=== PATIENT | male | born 2005 | race Caucasian/White ===

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

== ENCOUNTER 2025-07-03 17:43 | Outpatient (REF) | payer MEDICAID, SELFPAY ==
--- OUTSIDE RECORDS SUMMARY | 2025-07-03 09:00 | XMS_ITS | Encounter Summary ---
Author Organization [employer] Address [address] [place] [address] Care Team Providers Care Otr Owner Operator Name Role Phone Lorena Bhatia NP Primary Care Provider [phone] Reason for Referral * Consultation (Routine) - Authorized Specialty Diagnoses / Procedures Referred By German newell Referred To Contact Behavioral Health Diagnoses Posttraumatic stress disorder Lorena Bhatia NP [address] [place] [address] Phone: tel: fax: Referral ID Status Reason Start Date Expiration Date Visits Requested Visits Authorized [id number] Authorized Specialty Services Required 07/03/2026 1 1 * Consultation (Routine) - Authorized Specialty Diagnoses / Procedures Referred By German newell Referred To Contact Dental E Commerce Developer / Dentistry Diagnoses Routine general medical examination at a health care facility Lorena Bhatia NP [address] [place] [address] Phone: tel: fax: Referral ID Status Reason Start Date Expiration Date Visits Requested Visits Authorized [id number] Authorized Consult and Treat 07/03/2025 07/03/2026 1 1 Reason for Visit * Reason Comments Annual Exam Encounter Details Date Type Department Care Team (Late st Contact Info) Description 07/03/2025 9:00 AM EDT Office Visit [facility] [address] [place] [address] Lorena Bhatia NP [address] [place] [address] Routine general medical examination at a health care facility (Primary Dx); Anxiety; Posttraumatic stress disorder; Dietary counseling; Exercise counseling; Functional heart murmur Social History Tobacco Use Types Packs/Day Years Used Date Smoking Tobacco: Never Smokeless Tobacco: Never Alcohol Use Standard Drinks/Week Comments Never 0 (1 standard drink = 0.6 oz pur e alcohol) Depression Answer Date Recorded Patient Health Questionnaire-9 Score 12 05/23/2025 Patient Health Questionnaire-9 Score 12 05/23/2025 Last PHQ-9: Questionnaire Data Not on file 0 05/23/2025 Housing Stability Answer Date Recorded What is your housing situation today? I have dl nair 05/23/[address] you li ve. Do you have problems with any of the following? None of the above 05/23/2025 Food Insecurity Answer Date Recorded Within the past 12 months, y ou worried that your food would run out before you got money to buy more: Sometimes True 2024 Within the past 12 months,th e food you bought just didn't last and you didn't have enough money to get more: Sometimes True 05/23/2025 Transportation Answer Date Recorded In the past 12 months, has l ack of transportation kept you from medical appts, meetings, work or from getting things needed for daily living? No 05/23/2025 Utilities Answer Date Recorded In the past 12 months, has t he electric, gas, oil or water company threatened to shut off services in your home? No 05/23/2025 Depression Answer Date Recorded Patient Health Questionnaire-2 Score 4 05/23/2025 Internet Access Answer Date Recorded Internet Access Q1 Yes 05/23/2025 Internet Access Q2 Not on file 05/23/2025 Sex and Gender Information Value Date Recorded Sex Assigned at Male 07/21/2022 10:18 AM EDT Legal Sex Male 10:18 AM EDT Gender Identity Male 07/21/2022 10:18 AM EDT Sexual Orientation Straight 05/11/2024 11 :04 AM EDT documented as of this encounter Last Filed Vital Signs Vital Sign Reading Time Taken Comments Blood Pressure 112/80 07/03/2025 9:09 AM EDT Pulse 78 07/03/2025 9:09 AM EDT Temperature 36.7 C (98.1 F) 07/03/2025 9:09 AM EDT Respiratory Rate 17 07/03/2025 9:09 AM EDT Oxygen Saturation 99% 07/03/2025 9:09 AM EDT Inhaled Oxygen Concentration - - Weight 82 kg (180 lb 12.8 oz) 07/03/2025 9:09 AM EDT Height 172.7 cm (5' 8 ) 07/03/2025 9:09 AM EDT Body Mass Index 27.49 07/03/2025 9:09 AM EDT documented in this encounter Miscellaneous Notes * Assessment & Plan Note - Lorena Bhatia NP - 07/03/2025 9:00 AM EDTAssociated Problem(s): Routine general medical examination at a health care facility Dental care- encouraged to visit the dental department and establish care Routine eye examinations for a health adult- an internal referral will be sent; Encouraged to ensure eye examinations every 2-3 years Orders: Chlamydia/N. Gonorrhoeae, PCR, Urine Referral to [facility] Dental Adult; Future * Assessment & Plan Note - Lorena Bhatia NP - 07/03/2025 9:00 AM EDTAssociated Problem(s): Dietary counseling Dietary Recommendations: Fruits, vegetables, whole grains, protein foods, and fat-free or low-fat dairy products are healthychoices. Eat different types of protein foods in your diet. This can include seafood, lean meats, poultry, beans, peas, lentils, nuts, seeds, soy products, and eggs. Limit foods and beverages higher in added sugars, saturated fat, and sodium. Exercise Recommendations: At least 150 minutes of moderate-intensity physical activity per week, or an equivalent combinationof moderate- and vigorous-intensity activity * Assessment & Plan Note - Lorena Bhatia NP - 07/03/2025 9:00 AM EDTAssociated Problem(s): Anxiety Continue with lifestyle measures and encouraged to report anxiety that is unmanageable. He is welcomed to seek help through the behavioral team here as he can be connected with community services * Assessment & Plan Note - Lorena Bhatia NP - 07/03/2025 9:00 AM EDTAssociated Problem(s): Posttraumatic stress disorder Reports the condition is well controled and has a strong support system at home. Informed of the services offered here and he is welcomed to return with exacerbations to his condition. Orders: Referral to Behavioral Health; Future * Assessment & Plan Note - Lorena Bhatia NP - 07/03/2025 9:00 AM EDTAssociated Problem(s): Exercise counseling Encouraged to continue with exercise- walking and going to the gym At least 150 minutes of moderate-intensity physical activity per week, or an equivalent combinationof moderate- and vigorous-intensity activity * Assessment & Plan Note - Zoey Romero NP - 07/03/2025 9:00 AM EDT Associated Problem(s): Functional heart murmur Informed this is benign etiology, usually present in infancy and childhood. There were no concerning objective or subjective data collected. Encouraged to report palpitations, shortness of breath, dizziness, irregular heart rate, or inability to perform activities documented in this encounter Plan of Treatment Upcoming Encounters Date Type Department Care Team (Late st Contact Info) Description 09/04/2025 3:15 PM EST Office Visit [facility] [address], [place] [id number] Lorena Bhatia NP [address] [place] [address] Scheduled Orders Name Type Priority Associated Diagnoses Orde r Schedule Chlamydia/N. Gonorrhoeae, PCR, Urine Lab Routine Routine general medical examination at a health care facility Ordered: 07/03/2025 Scheduled Referrals Name Type Priority Associated Diagnoses Orde r Schedule Referral to [facility] Dental Adult Outpatient Referral Routine Routine general medical examination at a health care facility Expected: 07/03/2025 (Approximate), Expires: 07/03/2026 Referral to Behavioral Health Outpatient Referral Routine Posttraumatic stress disorder Expected: 07/03/2025 (Approximate), Expires: 12/31/2026 documented as of this encounter Visit Diagnoses Diagnosis Routine general medical examination at a health care facility- Primary Anxiety Anxiety state, unspecified Posttraumatic stress disorder Dietary counseling Dietary surveillance and counseling Exercise counseling Functional heart murmur Undiagnosed cardiac murmurs documented in this encounter Additional Health Concerns Assessment Noted Time PHQ-9 Depression Total Score: 12 025 2:42 PM EDT documented as of this encounter Care Teams Otr Owner Operator Relationship Specialty Start Date End Date Lorena Bhatia NP [address] [place] [address] PCP - General Family Medicine 05/11/24 Jacy Guardado Web PublisherZinc Etcher 04/27/24 documented as of this encounter
--- OUTSIDE RECORDS SUMMARY | 2025-07-03 17:46 | XMS_ITS | Encounter Summary ---
Author Organization [employer] Address [address] [place] [address] Care Team Providers Care Internal Salesperson Name Role Phone Lorena Bhatia NP Primary Care Provider [phone] Encounter Details Date Type Department Care Team (Latest Contact Info) Description 06/30/2025 Travel Social History Tobacco Use Types Packs/Day Years [...] is your housing situation today? I have dlmikayla nair 05/23/[address] you [...] AM EDT documented as of this encounter Plan of Treatment Upcoming Encounters Date Type Department Care Team (Late st Contact Info) Description 09/04/2025 3:15 PM EST Office Visit [facility] [address] [place] [phone] Lorena Bhatia NP [address] [place] [address] documented as of this encounter Visit Diagnoses Not on filedocumented in this encounter Additional Health Concerns Assessment Noted Time PHQ-9 Depression Total Score: 12 025 2:42 PM EDT documented as of this encounter Care Teams Internal Salesperson Relationship Specialty Start Date End Date Lorena Bhatia NP [address] [place] [id number] PCP - General Family Medicine 05/11/24 Jacy Guardado Security SupervisorIct Support Technicians 04/27/24 documented as of this encounter
--- OUTSIDE RECORDS SUMMARY | 2025-07-03 17:46 | XMS_ITS | Clinical Summary ---
Author Organization [employer] Address [address] [facility] [address] [place] [address] Care Team Providers Care Delivery Specialist Name Role Phone JannetteLorena NAA Primary Care Provider [phone] Allergies Active Allergy Reactions Criticality Noted Date Comments Penicillins Rash Low 04/28/2013 Medications * This document contains information received from the source organization and may not represent a complete record from that organization. cetirizine (ZyrTEC) 10 MG tabletIndicatio ns:Seasonal allergies 1 tablet by oral route daily prn allergy symptoms 90 tablet 2 3 Active ketotifen (Zaditor) 0.025 % ophthalmic solutionIndicat ions:Seasonal allergies PONGA HANG GOTA EN LOS DOS OJOS DOS VECES AL ANGELY CUANDO SEA NECESARIO ALLERGIES AT LEAST 8 HRS APART 10 mL 3 3 Active fluticasone (Flonase) 50 MCG/ACT nasal sprayIndication s:Seasonal allergies USE 1 SPRAY INTO BOTH NOSTRILS TWICE A DAY 48 mL 4 Active ondansetron (Zofran) 4 MG tabletIndicatio ns:Nausea Take 1 tablet (4 mg) by mouth every 8 (eight) hours if needed for nausea for up to 10 doses. 10 tablet 4 Active melatonin (Melatonin Maximum Strength) 5 MG tablet TAKE 1 TABLET (5 MG) BY MOUTH IF NEEDED AT BEDTIME ( NEEDED FOR INSOMNIA) 30 tablet 1 4 Active ketoconazole (NIZOral) 2 % cream Apply topically Once per day. 120 g 5 Active hydrOXYzine HCl (Atarax) 25 MG tablet Take 1 tablet (25 mg) by mouth every 12 (twelve) hours if needed for itching or anxiety. 60 tablet 5 08/02/20 25 Active Active Problems Problem Noted Date Diagnosed Date Routine general medical exam ination at a health care facility 07/03/2025 Assessment & Plan (07/03/2025 10:31 AM EDT): Dental care- encouraged to visit the dental department and establish care Routine eye examinations for a health adult- an internal referral will be sent; Encouraged to ensure eye examinations every 2-3 years Orders: Chlamydia/N. Gonorrhoeae, PCR, Urine Referral to [facility]; Future Dietary counseling 07/03/2025 Assessment & Plan (07/03/2025 10:31 AM EDT): Dietary Recommendations: Fruits, vegetables, whole grains, protein foods, and fat-free or low-fat dairy products are healthy choices. Eat different types of protein foods in your diet. This can include seafood, lean meats, poultry, beans, peas, lentils, nuts, seeds, soy products, and eggs. Limit foods and beverages higher in added sugars, saturated fat, and sodium. Exercise Recommendations: At least 150 minutes of moderate-intensity physical activity per week, or an equivalent combination of moderate- and vigorous-intensity activity Exercise counseling 07/03/2025 Assessment & Plan (07/03/2025 10:31 AM EDT): Encouraged to continue with exercise- walking and going to the gym At least 150 minutes of moderate-intensity physical activity per week, or an equivalent combination of moderate- and vigorous-intensity activity Tinea versicolor 05/23/2025 Assessment & Plan (05/23/2025 3:48 PM EDT): Encounter for pre-school health examination 04/22 Assessment & Plan (05/19/2024 12:53 PM EDT): Pt thriving anticipatory guidance reviewed, denies high risk behaviors, plans to attend college in the fall, denies any concerns today Utd on vaccines Insomnia 05/11/2024 Assessment & Plan (05/19/2024 12:49 PM EDT): Prn melatonin effective Abdominal pain 05/09/2024 Encopresis 05/09/2024 Functional heart murmur 05/09/2024 Assessment & Plan (07/03/2025 10:31 AM EDT): Informed this is benign etiology, usually present in infancy and childhood. There were no concerning objective or subjective data collected. Encouraged to report palpitations, shortness of breath, dizziness, irregular heart rate, or inability to perform activities Intermittent urinary incontinence 05/09/2024 Seasonal allergies 11/03/2022 Obesity 08/03/2017 Assessment & Plan (11/03/2022 9:10 PM EST): Reviewed [address] [place] [address]. Developmental academic disorder 03/30/2015 Allergic rhinitis 10/28/2013 Assessment & Plan (11/03/2022 9:10 PM EST): Stable on current med regimen. Anxiety 02/25/2013 Assessment & Plan (07/03/2025 10:31 AM EDT): Continue with lifestyle measures and encouraged to report anxiety that is unmanageable. He is welcomed to seek help through the behavioral team here as he can be connected with community services Assessment & Plan (04/20/2023 9:16 AM EDT): Assessment: Patient with anxiety (excessive worry around grades in school, decreased sleep, increased eating when nervous, and irritability). Anxiety is in the context of biopsychosocial stressor of lack of coping mechanisms.. Patient will benefit from OP therapy, referral declined at this time. At this time Abdirashid Muro meets criteria for Visit Diagnoses: Problem List Items Addressed This Visit Other Anxiety Patient ready to address current needs No Strengths- Abdirashid has a supportive family and mom feels that OP therapy is not necessary at this time. Mom will help him to explore coping mechanisms. PLAN: 1. Follow up with [facility]: Not recommended for follow-up 2. Patient goal is to explore coping mechanisms 3. Behavioral Recommendations a. Listening to quiet classical music or environmental sounds (rain, ocean) when going to sleep b. Playing piano during the day c. Deep breathing Autism 02/25/2013 Assessment & Plan (11/03/2022 9:10 PM EST): Stable. Encourage parent to continue to advocate for academic and behavioral health needs. Posttraumatic stress disorder 02/25/2013 Assessment & Plan (07/03/2025 10:31 AM EDT): Reports the condition is well controled and has a strong support system at home. Informed of the services offered here and he is welcomed to return with exacerbations to his condition. Orders: Referral to Behavioral Health; Future Speech delay 02/25/2013 Encounters * This document contains information received from the source organization and may not represent a complete record from that organization. Date Type Department Care Team Description 07/03/2025 9:00 AM EDT Office Visit [facility] [address] [place] [id number] Lorena Bhatia NP Routine general medical examination at a health care facility (Primary Dx); Anxiety; Posttraumatic stress disorder; Dietary counseling; Exercise counseling; Functional heart murmur 07/03/2025 Telephone [facility] [address] [place] [phone] Norman aYnez BH Request 07/03/2025 Travel 06/30/2025 Travel 06/26/2025 Patient Outreach [facility] [address] [place] [address] Lorena Bhatia NP Pre-visit Planning ([facility]OH unable to reach [facility] ) 05/23/2025 1:30 PM EDT Office Visit [facility] [address] [place] [phone] Lorena Bhatia NP Tinea versicolor (Primary Dx) 05/23/2025 Travel from Last 3 Months Immunizations Immunization Administration Dates Next Due DTaP 12/06/2009,03/10/2007,06/24/2006 DTaP / Hep B / IPV 04/29/2006,01/23/2006 HPV 9-Valent 10/12/2018,06/03/2017 Hep A, ped/adol, 2 dose 05/25/2007,12/08/2006 Hep B, Adolescent or Pediatric 06/24/2006,2005 Hib (HbOC) 03/10/2007, 6,04/29/2006,01/23 IPV 12/06/2009,06/24/2006 Influenza injectable quadriv alent preservative free 09/19/2020 Influenza, IIV3, injectable 12/04/2008,1 ,06/11/2007,09/25,06/24/2006 MMR 12/06/2009 MMRV 12/08/2006 Meningococcal MCV4P ACYW-135 06/03/2017 Meningococcal Polysaccharide A,C,Y,W-135 TT Conjugate 11/03/2022 Pneumococcal Conjugate PCV 7 03/10/2007, 06/24/2006,04/29/2006,01/23 Tdap 06/03/2017 Varicella 12/06/2009 Social History Tobacco Use Types Packs/Day Years Used Date Smoking Tobacco: Never Smokeless Tobacco: Never Tobacco Cessation:Counseling Given: Not Answered Alcohol Use Standard Drinks/Week Comments Never 0 [...] Orientation Straight 05/11/2024 11 :04 AM EDT Last Filed Vital Signs Vital Sign Reading [...] Mass Index 27.49 07/03/2025 9:09 AM EDT Plan of Treatment Upcoming Encounters Date Type Department Care Team (Late st Contact Info) Description 09/04/2025 3:15 PM EST Office Visit [facility] [address] [place] [address] Lorena Bhatia NP [address] [place] [address] Health Maintenance Due Date Last Done Comments Chlamydia and Gonorrhea Screening 2005 HIV Screening 2005 Hepatitis A Vaccines (2 of 2 - 2-dose series) 11/23/2007 05/25/2007, 12/08/2006 Family Planning (PISQ) 2020 Meningococcal B Vaccine (1 of 2 - Standard) 2021 Hepatitis C Screening 11/30/2023 COVID-19 Vaccine ( season) 2025 Influenza Vaccine (#1) 2025 , 12/04/2008, 06/22/2008, Additional history exists Depression Monitoring 11/20/2025 05/23/2025, 025 Alcohol/Substance Use Screening 05/23/2026 05/23/2025 Disability Screening 05/23/2026 05/23/2025 SDOH Screening 05/23/2026 05/23/2025 Tobacco Screening 05/23/2026 05/23/2025 DTaP/Tdap/Td Vaccines (7 - Td or Tdap) 06/03/2027 06/03/2017, 12/06/2009, 03/10/2007, Additional history exists Zoster Vaccines (1 of 2) 11/30/2055 RSV Patients and Patients Aged 60 years or older (1 - 1-dose 75+ series) 2080 Hepatitis B Vaccines Completed 06/24/2006, 04/29/2006, 01/23/2006, Additional history exists HIB Vaccines Completed 03/10/2007, 12/2005, 04/29/2006, Additional history exists Pneumococcal Vaccine: Pediatrics (0 to 5 Years) and At-Risk Patients (6 to 49) Years Aged Out 03/10/2007, 06/24/2006, 04/29/2006, Additional history exists No longer eligible based on patient's age to complete this topic IPV Vaccines Completed 12/06/2009, 12/2005, 04/29/2006, Additional history exists MMR Vaccines Completed 12/06/2009, 12/08/2006 Varicella Vaccines Completed 12/06/2009, 12/08/2006 Fluoride Varnish Discontinued 08/18/2017, 04/28/2013 HPV Vaccines Completed 10/12/2018, 06/03/2017 Meningococcal Vaccine Completed 11/03/2022, 017 RSV under 20 months Aged Out No longe r eligible based on patient's age to complete this topic Rotavirus Vaccines Aged Out No longer eligible based on patient's age to complete this topic Procedures Procedure Name Priority Date/Time Associated Diagnosis Comments TOPICAL APPLICATION OF FLUORIDE VARNISH Routine 08/18/2017 12:00 AM EST from Last 3 Months or Most Recently Relevant to Health Maintenance Insurance [facility] C[facility] C[facility] Care Teams Delivery Specialist Relationship Specialty Start Date End Date Lorena Bhatia NP [address] [place] [phone] PCP - General Family Medicine 05/11/24 Jacy Guardado Knockout ManWeb Content & Social Media Manager 04/27/24
--- OUTSIDE RECORDS SUMMARY | 2025-07-03 17:46 | XMS_ITS | Encounter Summary ---
Author Organization [employer] Address [address] [facility] [address] [place] [address] Care Team Providers Care Tree Fruit And Nut Farming Supervisor Name Role Phone Lorena Bhatia NP Primary Care Provider [phone] Encounter Details Date Type Department Care Team (Latest Contact Info) Description 07/03/2025 Travel Social History Tobacco Use Types Packs/Day [...] Description 09/04/2025 3:15 PM EST Office Visit [facility] [address] [place] [phone] Lorena Bhatia NP [address] [place] [address] documented as of this encounter Visit Diagnoses Not on filedocumented in this encounter Additional Health Concerns Assessment Noted Time PHQ-9 Depression Total Score: 12 025 2:42 PM EDT documented as of this encounter Care Teams Tree Fruit And Nut Farming Supervisor Relationship Specialty Start Date End Date Lorena Bhatia NP [address] [place] [phone] PCP - General Family Medicine 05/11/24 Jacy Guardado 8Th Grade TeacherProfessional System Administrator 04/27/24 documented as of this encounter
--- OUTSIDE RECORDS SUMMARY | 2025-07-03 17:46 | XMS_ITS | Encounter Summary ---
Author Organization [employer] Address [address] [facility] [address] [place] [address] Care Team Providers Care Nitro Man Name Role Phone Lorena Bhatia NP Primary Care Provider [phone] Reason for Visit * Reason Onset Date Comments Request 07/03/2025 Encounter Details Date Type Department Care Team ([facility] st Contact Info) Description 07/03/2025 Telephone [facility] [address] [place], [place] [phone] Norman Villalpando [address] [place], [place] [phone] Request Social History Tobacco Use Types Packs/Day Years [...] AM EDT documented as of this encounter Miscellaneous Notes * Telephone Encounter - Norman Villalpando - 07/03/2025 1:36 PM EDT Patient was contacted to make an telehealth and/ or in person BE. Per PCP request. No answer. Unable to leave voicemail. documented in this encounter Plan of Treatment Upcoming Encounters Date Type Department Care Team (Late st Contact Info) Description 09/04/2025 3:15 PM EST Office Visit [facility] [address] [place] [address] Lorena Bhatia NP [address] [place] [address] documented as of this encounter Visit Diagnoses Not on filedocumented in this encounter Additional Health Concerns Assessment Noted Time PHQ-9 Depression Total Score: 12 025 2:42 PM EDT documented as of this encounter Care Teams Nitro Man Relationship Specialty Start Date End Date Lorena Bhatia NP [address] [place] [address] PCP - General Family Medicine 05/11/24 Jacy Guardado Photo TechAccount Development Specialist 04/27/24 documented as of this encounter
[2025-07-04 06:07] LABS: CT PCR Urine NOT DETECTED (Not Detect.); NG PCR Urine NOT DETECTED (Not Detect.)
== END 2025-07-03 17:44 | disposition home or self-care (01) ==
LOC: HO.HHCLNP 17:43
PROVIDERS: Visit Provider Nurse Practitioner Family
DX: Z00.00 Encounter for general adult medical examination without abnormal findings (principal); Z20.2 Contact with and (suspected) exposure to infections with a predominantly sexual mode of transmission
CPT/HCPCS: 87491; 87591